=== PATIENT | male | born 1995 | race Two or more races ===

== ENCOUNTER 2019-08-13 19:15 | Emergency (ER) | payer OTHER ==
[~2019-08-13] VITALS: Ht 172.7 cm; Wt 63.0 kg
== END 2019-08-13 22:19 | disposition home or self-care (01) ==
LOC: ER 19:15
DX: B34.9 Viral infection, unspecified (principal)

== ENCOUNTER 2019-09-25 21:49 | Emergency (ER) | payer OTHER ==
[~2019-09-25] VITALS: Ht 172.7 cm; Wt 64.4 kg
[2019-09-26] MEDS ORDERED: DOLOGESIC 500-1 EACH PO (00:54)
[2019-09-26] MEDS ORDERED: ZYRTEC10 M3 PO ×2 (00:58→00:59)
== END 2019-09-26 01:30 | disposition home or self-care (01) ==
LOC: ER 21:49
DX: B34.9 Viral infection, unspecified (principal)